=== PATIENT | female | born 1985 | race Caucasian/White ===

== ENCOUNTER 2018-12-08 04:43 | Emergency (ER) | payer MEDICAID ==
[2018-12-08] MEDS: ACETAMINOPHEN 325 MG TAB PO (07:03)
[2018-12-08] MEDS: IBUPROFEN 200 MG TAB PO (07:03)
== END 2018-12-08 07:13 | disposition home or self-care (01) ==
LOC: FTE 04:43
DX: H65.92 Unspecified nonsuppurative otitis media, left ear (principal)
CPT/HCPCS: 99283; Z7502